=== PATIENT | male | born 1990 | race American Indian/Alaskan Native ===

== ENCOUNTER 2019-03-15 19:04 | Emergency (ER) | payer SELFPAY ==
--- NOTE | 2019-03-15 19:29 | Emergency Department Report ---
Chief Complaint: Urogenital-Male Stated Complaint: SICK Time Seen by Provider: 03/15/19 19:21 - HPI History of Present Illness: This is a 28-year-old male nontoxic, well in appearance with no signs of distress presents to the ED for STD check. Stated has some white penile discharge that is intermittent x1 month. Patient stated that her partner called and said has STD. Patient stated he is asymptotic. Denies any testicular pain, or swelling. Patient denies any urinary symptoms. Patient denies any fever, chills, headache, nausea, vomiting, chest pain or shortness of breathe. denies any other symptoms or complaints. Denies any allergies or PMH. - Exam Physical Exam: no abdominal pain. no back pain. no urinary symptoms. MSE screening note: Focused history and physical exam performed. Due to findings the following was ordered: ED Medical Decision Making - Medical Decision Making This is a 28-year-old male that presents with nonmedical emergency complaint. Patient is just requested for a STD test. Patient denies any symptoms. I gave patient many different referrals to follow-up with STD concerns. Patient was instructed to Follow-up with a primary care doctor in 3-5 days or if symptoms worsen and continue return to emergency room as soon as possible. At time of discharge, the patient does not seem toxic or ill in appearance. No acute signs of distress noted. Patient agrees to discharge treatment plan of care. No further questions noted by the patient. ED Disposition for MSE Clinical Impression: Possible exposure to STD Disposition: Z-07 MED SCREENING EXAM-LEFT Is pt being admited?: No Does the pt Need Aspirin: No Condition: Stable Instructions: Safe Sex (ED) Additional Instructions: Follow-up with a primary care doctor in 3-5 days or if symptoms worsen and continue return to emergency room as soon as possible. Referrals: PRIMARY CAREMD [Referring] - 3-5 Days SD NAVA MD [Staff Physician] - 3-5 Days [facility] [Outside] - 3-5 Days [facility] [Outside] - 3-5 Days
[2019-03-15 20:09] VITALS: BP 156/88
== END 2019-03-15 19:35 | disposition left against medical advice (07) ==
LOC: ED 19:04
DX: R36.9 Urethral discharge, unspecified (principal)
CPT/HCPCS: 99282

== ENCOUNTER 2020-12-04 11:00 | Emergency (ER) | payer SELFPAY ==
--- NOTE | 2020-12-04 13:15 | Emergency Department Report ---
ED General Adult HPI - General Chief complaint: Eye Problems Stated complaint: SWOLLEN (R)EYE/VERY PAINFUL Time Seen by Provider: 12/04/20 13:11 Source: patient Mode of arrival: Ambulatory Limitations: No Limitations - History of Present Illness Initial comments: 30-year-old male patient presents to the emergency department with complaints of right eye pain/swelling starting 2 days ago. Today, when patient woke up, he noticed "his eye was crusty." No preceding fall, trauma, or injury. Patient does not wear contact lenses. Patient has no history of ophthalmological disease. Denies fever, chills, cough, congestion, sneezing, sore throat, ear pain. Denies all other complaints at this time. - Related Data Previous Rx's Medication Instructions Recorded Last Taken Type Erythromycin [Erythromycin Ophth 10 applic OP QID 5 Days tube 12/04/20 Unknown Rx Oint] Allergies Allergy/AdvReac Type Severity Reaction Status Date / Time No Known Allergies Allergy Unverified 12/04/20 11:31 ED Review of Systems ROS: Stated complaint: SWOLLEN (R)EYE/VERY PAINFUL Other details as noted in HPI Other: GENERAL: Negative for fever. EYES: Positive for pain/swelling/drainage. CARDIOVASCULAR: Negative for chest pain. PULMONARY: Negative for shortness of breath. GASTROINTESTINAL: Negative for abdominal pain. MUSCULOSKELETAL: Negative for back pain. NEUROLOGICAL: Negative for headache. INTEGUMENTARY: Negative for rash. ED Past Medical Hx - Past Medical History Previous Medical History?: No - Surgical History Past Surgical History?: No - Medications Home Medications: Home Medications Medication Instructions Recorded Confirmed Last Taken Type Erythromycin [Erythromycin Ophth 10 applic OP QID 5 Days tube 12/04/20 Unknown Rx Oint] ED Physical Exam - General Limitations: No Limitations - Other Other exam information: General: Awake, appropriately interactive, no acute distress. Eyes: Right periorbital swelling. Pupils equal and round. Extraocular movements intact and painless. Right conjunctival/scleral injection. See RN note for visual acuity. Neck: Supple. Full range of motion intact. Cardiovascular: Normal peripheral perfusion. Pulmonary: No respiratory distress. Patient is speaking normally without use of accessory muscles. Skin: No apparent rashes or lesions. Neurological: No facial asymmetry. Speech is clear. Follows commands. Patient is alert and oriented. Musculoskeletal: Moves all four extremities spontaneously with normal range of motion. Psych: Cooperative. Appropriate mood and affect. ED Course Vital Signs 12/04/20 11:35 Temperature 98.3 F Pulse Rate 69 Respiratory 18 Rate Blood Pressure 139/92 O2 Sat by Pulse 95 Oximetry ED Medical Decision Making - Medical Decision Making Patient presents emergency department with signs/symptoms consistent with acute conjunctivitis. Visual acuity obtained and documented by RN. Patient will be discharged home with antibiotics and referred to [facility] for close outpatient follow-up. Patient expressed understanding and is agreeable to plan of care. Disease transmission precautions discussed. Strict return precautions provided. History, exam, diagnostic testing, and current condition do not suggest worrisome pathology to warrant further testing, continued ED treatment, admission, or surgical evaluation at this point. Given the low probability of a significant medical illness, it would be more likely to result in harm than benefit to perform further testing at this stage. Discussed findings, presumptive diagnosis, need for follow-up and specific signs/symptoms that should prompt immediate return to the emergency department. Instructions were explained in detail to the patient in addition to giving written discharge information. Patient expressed understanding and was given the opportunity to ask questions, all of which were satisfactorily answered prior to discharge home. Critical care attestation.: If time is entered above; I have spent that time in minutes in the direct care of this critically ill patient, excluding procedure time. ED Disposition Clinical Impression: Acute conjunctivitis Qualifiers: Acute conjunctivitis type: unspecified Laterality: right Qualified Code(s): H10.31 - Unspecified acute conjunctivitis, right eye Disposition: DC-01 TO HOME OR SELFCARE Is pt being admited?: No Does the pt Need Aspirin: No Condition: Stable Instructions: Bacterial Conjunctivitis, Adult, [id number] Additional Instructions: Take Tylenol every 4 hours and Motrin every 8 hours as needed for pain. Apply cool compresses to affected area as needed for swelling. Apply Erythromycin ointment to affected area as directed. Wash hands frequently to prevent disease transmission. Avoid touching your right eye as much as possible. Follow-up with [facility] this week. Call today to schedule an appointment. See referral information below. Return to the emergency department immediately for new or worsening symptoms. Prescriptions: Erythromycin [Erythromycin Ophth Oint] 10 applic OP QID 5 Days tube Referrals: TOMAS LEDEZMA MD [Staff Physician] - 3-5 Days Time of Disposition: 13:14
== END 2020-12-04 14:23 | disposition home or self-care (01) ==
LOC: ED 11:00
DX: H10.31 Unspecified acute conjunctivitis, right eye (principal)
CPT/HCPCS: 99282

== ENCOUNTER 2021-09-25 18:02 | Emergency (ER) | payer SELFPAY ==
[2021-09-25 18:12] VITALS: BP 150/108
== END 2021-09-25 22:47 | disposition left against medical advice (07) ==
LOC: ED 18:02
DX: S61.219A Laceration without foreign body of unspecified finger without damage to nail, initial encounter (principal); Z53.21 Procedure and treatment not carried out due to patient leaving prior to being seen by health care provider; X58.XXXA Exposure to other specified factors, initial encounter; Y93.9 Activity, unspecified; Y92.89 Other specified places as the place of occurrence of the external cause; Y99.8 Other external cause status